=== PATIENT | female | born 1950 | race Caucasian/White ===

== ENCOUNTER 2019-01-20 14:00 | Observation (INO) | payer BC, MEDICARE ==
--- NOTE | 2019-01-20 15:04 | ED ---
General Adult HPI - General Chief complaint: Recheck/Abnormal Lab/Rx Stated complaint: Near-syncope Time Seen by Provider: 01/20/19 14:01 Source: patient, family, EMS, RN notes reviewed Mode of arrival: EMS Limitations: no limitations - History of Present Illness Initial comments: Patient is a pleasant 68-year-old female presenting to the emergency department following a near syncopal episode. Patient was going home and walked up the steps. Patient felt very lightheaded. Patient was concerned she could pass out. Symptoms did improve. Patient does complain of mild to moderate headache. Headache is left temporal. Headache is not severe. Headache was not sudden onset. No chest pain. No dyspnea. No history of similar symptoms previously. Patient does not recall the episode between the event and walking to get into the car. - Related Data Home Medications Medication Instructions Recorded Confirmed Simvastatin [Zocor] 40 mg PO DAILY 02/17/15 01/20/19 Acetaminophen with Codeine 1 tab PO QID PRN 01/20/19 01/20/19 [Tylenol with Codeine #4 Tablet] Albuterol Sulfate [Ventolin HFA] 2 puff INHALATION RT-Q4H PRN 01/20/19 01/20/19 Alendronate Sodium [Fosamax] 70 mg PO SA 01/20/19 01/20/19 Carvedilol [Coreg] 6.25 mg PO AC-BID 01/20/19 01/20/19 Cholecalciferol (Vitamin D3) 2,000 unit PO DAILY 01/20/19 01/20/19 [Vitamin D3] FLUoxetine HCL [PROzac] 40 mg PO DAILY 01/20/19 01/20/19 Famotidine 40 mg PO DAILY 01/20/19 01/20/19 Levothyroxine Sodium [Synthroid] 150 mcg PO DAILY 01/20/19 01/20/19 Lisinopril 40 mg PO DAILY 01/20/19 01/20/19 Tiotropium [place] [Spiriva 2 puff INHALATION RT-DAILY 01/20/19 01/20/19 Respimat] busPIRone HCl [Buspar] 10 mg PO DAILY 01/20/19 01/20/19 hydrALAZINE HCL 10 mg PO TID 01/20/19 01/20/19 Allergies Allergy/AdvReac Type Severity Reaction Status Date / Time Penicillins Allergy Anaphylaxis Verified 01/20/19 15:50 Sulfa (Sulfonamide Allergy Rash/Hives Verified 01/20/19 15:50 Antibiotics) Review of Systems ROS Statement: Those systems with pertinent positive or pertinent negative responses have been documented in the HPI. ROS Other: All systems not noted in ROS Statement are negative. Constitutional: Denies: fever Eyes: Denies: eye pain ENT: Denies: ear pain Respiratory: Denies: cough, dyspnea Cardiovascular: Denies: chest pain Endocrine: Denies: fatigue Gastrointestinal: Denies: abdominal pain Genitourinary: Denies: dysuria Musculoskeletal: Denies: back pain Skin: Denies: rash Neurological: Reports: headache. Denies: weakness, numbness, paresthesias, confusion Past Medical History Past Medical History: Fibromyalgia, Hypertension, Osteoarthritis (OA) Additional Past Medical History / Comment(s): kidney disease stage 4, morbid obesity History of Any Multi-Drug Resistant Organisms: None Reported Past Surgical History: Cholecystectomy, Orthopedic Surgery Additional Past Surgical History / Comment(s): d & c Past Psychological History: Anxiety, Depression Smoking Status: Former smoker Past Alcohol Use History: Occasional Past Drug Use History: None Reported General Exam Limitations: no limitations General appearance: alert, in no apparent distress Head exam: Present: atraumatic Eye exam: Present: normal appearance, PERRL, EOMI Expanded Posterior chamber: Normal Inspection: Bilateral ENT exam: Present: normal oropharynx Neck exam: Present: normal inspection. Absent: tenderness, meningismus Respiratory exam: Present: normal lung sounds bilaterally Cardiovascular Exam: Present: regular rate, normal rhythm GI/Abdominal exam: Present: soft. Absent: tenderness Extremities exam: Present: normal inspection. Absent: pedal edema, calf tenderness Neurological exam: Present: alert, oriented X3, CN II-XII intact. Absent: motor sensory deficit Expanded Neurological exam: Present: protecting the airway Patient oriented to: Present: person, place, time Speech: Present: fluid speech Cranial nerves: Facial Sensation: Normal Sensory exam: Upper Extremity Light Touch: Normal, Lower Extremity Light Touch: Normal Motor strength exam: RUE: 5, LUE: 5, RLE: 5, LLE: 5 Eye Response: (4) open spontaneously Motor Response: (6) obeys commands Verbal Response: (5) oriented Psychiatric exam: Present: normal affect, normal mood Skin exam: Present: normal color Course Vital Signs 11/24/19 14:07 Temperature 98.2 F Pulse Rate 67 Respiratory 18 Rate Blood Pressure 159/79 O2 Sat by Pulse 100 Oximetry EKG Findings - EKG Comments: EKG Findings:: Normal sinus rhythm 67. SC 160. QRS 92. QT 422. QTC 445. Normal axis. Normal QRS. No acute ST change. Medical Decision Making - Medical Decision Making Patient reevaluated and resting comfortably in bed. Patient family updated on results and plan. Case was discussed in detail with Dr. Lai, who will admit for hospital call. He does request orthostatics and the fluid bolus. Patient states vision is improving. - Lab Data Result diagrams: 01/20/19 14:33 01/20/19 14:33 Lab Results 01/20/19 01/20/19 01/20/19 Range/Units 14:33 14:33 14:33 WBC 17.8 H (3.8-10.6) k/uL RBC 4.41 (3.80-5.40) m/uL Hgb 13.5 (11.4-16.0) gm/dL Hct 41.2 (34.0-46.0) % MCV 93.6 (80.0-100.0) fL MCH 30.6 (25.0-35.0) pg MCHC 32.7 (31.0-37.0) g/dL RDW 12.8 (11.5-15.5) % Plt Count 273 (150-450) k/uL Neutrophils % 72 % Lymphocytes % 16 % Monocytes % 9 % Eosinophils % 1 % Basophils % 1 % Neutrophils # 12.8 H (1.3-7.7) k/uL Lymphocytes # 2.9 (1.0-4.8) k/uL Monocytes # 1.6 H (0-1.0) k/uL Eosinophils # 0.2 (0-0.7) k/uL Basophils # 0.2 (0-0.2) k/uL PT 10.3 (9.0-12.0) sec INR 1.0 (<1.2) APTT 21.8 L (22.0-30.0) sec Sodium 140 (137-145) mmol/L Potassium 3.8 (3.5-5.1) mmol/L Chloride 107 (98-107) mmol/L Carbon Dioxide 23 (22-30) mmol/L Anion Gap 10 mmol/L BUN 48 H (7-17) mg/dL Creatinine 1.52 H (0.52-1.04) mg/dL Est GFR (CKD-EPI)AfAm 40 (>60 ml/min/1.73 sqM) Est GFR (CKD-EPI)NonAf 35 (>60 ml/min/1.73 sqM) Glucose 94 (74-99) mg/dL Calcium 9.2 (8.4-10.2) mg/dL Total Bilirubin 0.4 (0.2-1.3) mg/dL AST 23 (14-36) U/L ALT 17 (9-52) U/L Alkaline Phosphatase 66 (38-126) U/L Troponin I (0.000-0.034) ng/mL Total Protein 7.3 (6.3-8.2) g/dL Albumin 3.9 (3.5-5.0) g/dL 01/20/19 Range/Units 14:33 WBC (3.8-10.6) k/uL RBC (3.80-5.40) m/uL Hgb (11.4-16.0) gm/dL Hct (34.0-46.0) % MCV (80.0-100.0) fL MCH (25.0-35.0) pg MCHC (31.0-37.0) g/dL RDW (11.5-15.5) % Plt Count (150-450) k/uL Neutrophils % % Lymphocytes % % Monocytes % % Eosinophils % % Basophils % % Neutrophils # (1.3-7.7) k/uL Lymphocytes # (1.0-4.8) k/uL Monocytes # (0-1.0) k/uL Eosinophils # (0-0.7) k/uL Basophils # (0-0.2) k/uL PT (9.0-12.0) sec INR (<1.2) APTT (22.0-30.0) sec Sodium (137-145) mmol/L Potassium (3.5-5.1) mmol/L Chloride (98-107) mmol/L Carbon Dioxide (22-30) mmol/L Anion Gap mmol/L BUN (7-17) mg/dL Creatinine (0.52-1.04) mg/dL Est GFR (CKD-EPI)AfAm (>60 ml/min/1.73 sqM) Est GFR (CKD-EPI)NonAf (>60 ml/min/1.73 sqM) Glucose (74-99) mg/dL Calcium (8.4-10.2) mg/dL Total Bilirubin (0.2-1.3) mg/dL AST (14-36) U/L ALT (9-52) U/L Alkaline Phosphatase (38-126) U/L Troponin I <0.012 (0.000-0.034) ng/mL Total Protein (6.3-8.2) g/dL Albumin (3.5-5.0) g/dL - Radiology Data Radiology results: report reviewed (Computed tomography scan of the brain shows nonspecific white matter demineralization that could be chronic small vessel change.), image reviewed (Chest x-ray shows no acute process) Disposition Clinical Impression: Near syncope Disposition: ADMITTED IP TO THIS HOSP Is patient prescribed a controlled substance at d/c from ED?: No Referrals: Radha Hurtado MD [Primary Care Provider] - 1-2 days Decision Time: 16:33
[2019-01-20 15:24] LABS: Basophils # (A) 0.2 k/uL (0-0.2); Basophils % (A) 1 %; Eosinophils # (A) 0.2 k/uL (0-0.7); Eosinophils % (A) 1 %; HCT 41.2 % (34.0-46.0); HGB 13.5 gm/dL (11.4-16.0); Lymphocytes # (A) 2.9 k/uL (1.0-4.8); Lymphocytes % (A) 16 %; MCH 30.6 pg (25.0-35.0); MCHC 32.7 g/dL (31.0-37.0); MCV 93.6 fL (80.0-100.0); Mean Platelet Volume 6.2; Monocytes # (A) 1.6 k/uL (0-1.0); Monocytes % (A) 9 %; Neutrophils # (A) 12.8 k/uL (1.3-7.7); Neutrophils % (A) 72 %; Platelet Count 273 k/uL (150-450); RBC 4.41 m/uL (3.80-5.40); RDW 12.8 % (11.5-15.5); WBC 17.8 k/uL (3.8-10.6)
--- NOTE | 2019-01-20 15:28 | XR ---
EXAMINATION TYPE: XR chest 2V DATE OF EXAM: 01/20/2019 COMPARISON: Prior chest 02/17/2015 HISTORY: Syncope, hypertension and headache TECHNIQUE: Frontal and lateral views of the chest are obtained. FINDINGS: There are overlying cardiac leads. There is no focal air space opacity, pleural effusion, o r pneumothorax seen. The cardiac silhouette size is stable, borderline enlarged. Arthropathy noted in the right shoulder is stable. The osseous structures are intact. IMPRESSION: No acute cardiopulmonary process.
[2019-01-20 15:32] LABS: Albumin 3.9 g/dL (3.5-5.0); Calcium 9.2 mg/dL (8.4-10.2); Potassium 3.8 mmol/L (3.5-5.1); Total Bilirubin 0.4 mg/dL (0.2-1.3); Total Protein 7.3 g/dL (6.3-8.2)
--- NOTE | 2019-01-20 15:32 | CT ---
EXAMINATION TYPE: CT brain wo con DATE OF EXAM: 01/20/2019 COMPARISON: None HISTORY: Dizziness and some confusion. CT DLP: 1080.4 mGycm Automated exposure control for dose reduction was used. Helical acquisition through the brain FINDINGS: Brain density is remarkable for some periventricular low-attenuation. There is no hemorrhage or hydro cephalus. Calvarium is intact. Orbits show symmetric appearance. Corpus callosum, pituitary, cervical medullary junction, cerebellopontine angles are within normal limits. There are cerebral vascular ca lcifications present. Paranasal sinuses and mastoid air cells are well aerated. IMPRESSION: NONSPECIFIC WHITE MATTER DEMYELINATION MAY BE RELATED TO CHRONIC SMALL VESSEL ISCHEMIC CHANGE. ALTERN ATE IMAGING COULD BE PERFORMED FOR ADDITIONAL EVALUATION INDICATED.
[2019-01-20 15:38] LABS: Prothrombin Time 10.3 sec (9.0-12.0)
[2019-01-20 15:41] LABS: Partial Thromboplastin Time 21.8 sec (22.0-30.0)
[2019-01-20] MEDS ORDERED: SODIUM CHLORIDE 0.9% 1,000 ML IV STA (15:59)
[2019-01-20] MEDS ORDERED: SODIUM CHLORIDE 0.9% 500 ML 500 ML IV STA (16:25)
[2019-01-20] MEDS ORDERED: NALOXONE 0.4 MG/ML 1 ML VIAL IV PRN (16:33)
[2019-01-20] MEDS: PANTOPRAZOLE 40 MG/10 ML VIAL IV SCH (16:51)
[2019-01-20 17:29] LABS: Appearance,Urine Clear (Clear); Bilirubin,Urine Negative (Negative); Blood,Urine Negative (Negative); Color,Urine Yellow; Glucose,Urine (UA) Negative (Negative); Ketones,Urine Negative (Negative); Leukocyte Esterase,Urine Negative (Negative); Nitrite,Urine Negative (Negative); PH, Urine 5.5 (5.0-8.0); Protein,Urine Negative (Negative); Specific Gravity,Urine 1.018 (1.001-1.035); Urobilinogen,Urine <2.0 mg/dL (<2.0)
[2019-01-20] MEDS ORDERED: Acetaminophen-Codeine 300-30mg TAB PO PRN (18:14)
[2019-01-20] MEDS ORDERED: ACETAMINOPHEN TAB 325 MG TAB PO PRN (18:19)
[2019-01-20] MEDS ORDERED: IPRATROPIUM-ALBUTEROL 3 ML NEB INHALATION PRN (18:19)
--- NOTE | 2019-01-20 18:25 | P.HPIM ---
History of Present Illness H&P Date: 01/20/19 Chief Complaint: Dizziness 68-year-old female with PMH of asthma, fibromyalgia, anxiety and depression, thyroid nodule status post thyroidectomy, hypertension, chronic kidney disease presents the ED for dizziness. Patient states that she was in the car driving for 1-1/2 hours prior to presentation. She stepped out of her car and started walking into the house when she started feeling lightheaded. She was able to ambulate 3 stairs when she started experiencing blackout vision. She denies any prodrome of sweating, nausea or palpitations. Her son was able to attend to her and bring her to the ED. She denies any shaking of her extremities, tongue biting or bladder or bowel incontinence. She denies any postictal confusion. Patient complains of black spots in her left vision currently along with left temporal headache. She denies any lower extremity swelling, nausea or vomiting, fever or chills, cough, chest pain, shortness of breath, changes in urination or bowel habits. No changes in appetite or weight. She denies any slurred speech or difficulty swallowing. She denies any numbness, weakness/tingling of the extremities. Of note, patient reports seeing her PCP recently for sinusitis where she received some prednisone along with a Z-David. She denies any smoking, alcohol or illicit drug use. She denies any history of CVA or [place]. In the ED, her vital signs were stable. CBC showed leukocytosis of 17.8. Coagulation panel was negative. CMP showed BUN 48, creatinine 1.52. Troponin was negative. Urinalysis was negative. Chest x-ray was negative. CT brain showed white matter demyelination, concerns for chronic ischemic vessel disease. Patient is admitted for presyncope, rule out CVA, neurology on consult. Review of Systems Pertinent positives and negatives as discussed in HPI, a complete review of systems was performed and all other systems are negative. Past Medical History Past Medical History: Fibromyalgia, Hypertension, Osteoarthritis (OA) Additional Past Medical History / Comment(s): kidney disease stage 4, morbid obesity History of Any Multi-Drug Resistant Organisms: None Reported Past Surgical History: Cholecystectomy, Orthopedic Surgery Additional Past Surgical History / Comment(s): d & c Past Psychological History: Anxiety, Depression Smoking Status: Former smoker Past Alcohol Use History: Occasional Past Drug Use History: None Reported Medications and Allergies Home Medications Medication Instructions Recorded Confirmed Type Simvastatin [Zocor] 40 mg PO DAILY 02/17/15 01/20/19 History Acetaminophen with Codeine 1 tab PO QID PRN 01/20/19 01/20/19 History [Tylenol with Codeine #4 Tablet] Albuterol Sulfate [Ventolin HFA] 2 puff INHALATION RT-Q4H PRN 01/20/19 01/20/19 History Alendronate Sodium [Fosamax] 70 mg PO SA 01/20/19 01/20/19 History Carvedilol [Coreg] 6.25 mg PO AC-BID 01/20/19 01/20/19 History Cholecalciferol (Vitamin D3) 2,000 unit PO DAILY 01/20/19 01/20/19 History [Vitamin D3] FLUoxetine HCL [PROzac] 40 mg PO DAILY 01/20/19 01/20/19 History Famotidine 40 mg PO DAILY 01/20/19 01/20/19 History Levothyroxine Sodium [Synthroid] 150 mcg PO DAILY 01/20/19 01/20/19 History Lisinopril 40 mg PO DAILY 01/20/19 01/20/19 History Tiotropium [place] [Spiriva 2 puff INHALATION RT-DAILY 01/20/19 01/20/19 History Respimat] busPIRone HCl [Buspar] 10 mg PO DAILY 01/20/19 01/20/19 History hydrALAZINE HCL 10 mg PO TID 01/20/19 01/20/19 History Allergies Allergy/AdvReac Type Severity Reaction Status Date / Time Penicillins Allergy Anaphylaxis Verified 01/20/19 15:50 Sulfa (Sulfonamide Allergy Rash/Hives Verified 01/20/19 15:50 Antibiotics) Physical Exam Vitals: Vital Signs Temp Pulse Pulse Pulse Pulse Resp BP 01/20/19 17:00 75 66 69 18 01/20/19 14:07 98.2 F 67 18 159/79 BP BP BP Pulse Ox 01/20/19 17:00 157/83 166/89 152/72 01/20/19 14:07 100 Intake and Output 01/20/19 01/20/19 01/20/19 06:59 14:59 22:59 Other: Weight 129.274 kg General: [non toxic], [obese], [appears at stated age] Derm: [warm], [dry] Head: [atraumatic], [normocephalic], [symmetric] Eyes: [EOMI], [no lid lag], [anicteric sclera] Mouth: [no lip lesion], [mucus membranes moist] Cardiovascular: [S1S2 reg], [irregular with systolic murmur], [positive DP pulse bilateral], Lungs: [CTA bilateral], [no rhonchi, no rales] , [no accessory muscle use] Abdominal: [soft], [ nontender to palpation], [no guarding], [no appreciable organomegaly] Ext: [no gross muscle atrophy], [no edema], [no contractures] Neuro: [ CN II-XI grossly intact], [no focal neuro deficits] Psych: [Alert], [oriented], [appropriate affect] Results CBC & Chem 7: 01/20/19 14:33 01/20/19 14:33 Labs: Abnormal Lab Results - Last 24 Hours (Table) 01/20/19 01/20/19 01/20/19 Range/Units 14:33 14:33 14:33 WBC 17.8 H (3.8-10.6) k/uL Neutrophils # 12.8 H (1.3-7.7) k/uL Monocytes # 1.6 H (0-1.0) k/uL APTT 21.8 L (22.0-30.0) sec BUN 48 H (7-17) mg/dL Creatinine 1.52 H (0.52-1.04) mg/dL Assessment and Plan Assessment: Dizziness with visual changes, concerns for CVA Leukocytosis Acute kidney injury on chronic kidney disease Chronic conditions: Asthma not in acute exacerbation Fibromyalgia Depression and anxiety Thyroid nodule status post thyroidectomy Hypertension Her orthostats are negative. Troponin is less than 0.012 with EKG showing normal sinus rhythm and sinus arrhythmia. Brain CT shows nonspecific white matter demyelination may be related to chronic small vessel ischemic changes. There are some concerns for CVA given her visual changes. Plans: Start normal saline at 130 mL/h and recheck orthostats tomorrow morning. Telemetry monitoring. Follow echocardiogram. Follow d-dimer, low concerns for PE. Trend troponin/EKG to rule out ACS. Will initiate stroke workup, follow carotid duplex/A1c/lipid panel/MRI brain. We will consult neurology. We will consult PT, OT and ST. Leukocytosis of 17.8. Urinalysis negative. Chest x-ray negative for pneumonia. Patient does report recent history of steroid use for sinusitis. Likely due to steroid use. Plans: We'll continue to monitor. Repeat CBC tomorrow morning. Creatinine 1.52. Unknown baseline. Patient known CKD. Plans: Hydration as above. Repeat BMP tomorrow morning. We will restart home medications for her depression and anxiety. Resume Coreg, hydralazine for hypertension while holding lisinopril due to CHARO. Restart Synthroid for hypothyroidism. DuoNeb as needed for shortness of breath and wheezing for asthma. DVT prophylaxis: [SCD] Discussed with: [Patient] Anticipated discharge: [1-2 days] Anticipated discharge place: [Home] A total of [45] minutes was spent on the care of this complex patient more than 50% of the time was spent in counseling and care coordination. Patient names her son Severino decision maker indicates that she can't make decisions for herself. She reiterates wanting to remain full code at this time.
[2019-01-20] MEDS ORDERED: ASPIRIN 81 MG PO STA (21:12)
[2019-01-20] MEDS ORDERED: HEPARIN SODIUM,PORCINE 5,000 UNIT/ML 1 ML VIAL IV PRN (21:13)
[2019-01-20] MEDS ORDERED: HEPARIN SODIUM,PORCINE 5,000 UNIT/ML 1 ML VIAL IV ONE (21:13)
[2019-01-20] MEDS ORDERED: HEPARIN SOD,PORK IN 0.45% NACL 25,000 UNIT in 0.45% NACL 1 250ML.BAG IV SCH (21:15)
[2019-01-20 21:44] LABS: Basophils # (A) 0.1 k/uL (0-0.2); Basophils % (A) 1 %; Eosinophils # (A) 0.2 k/uL (0-0.7); Eosinophils % (A) 2 %; HCT 34.8 % (34.0-46.0); HGB 10.9 gm/dL (11.4-16.0); Lymphocytes % (A) 24 %; MCH 29.6 pg (25.0-35.0); MCHC 31.2 g/dL (31.0-37.0); MCV 94.8 fL (80.0-100.0); Mean Platelet Volume 6.3; Monocytes # (A) 1.1 k/uL (0-1.0); Monocytes % (A) 9 %; Neutrophils # (A) 7.6 k/uL (1.3-7.7); Neutrophils % (A) 62 %; Platelet Count 228 k/uL (150-450); RBC 3.67 m/uL (3.80-5.40); WBC 12.3 k/uL (3.8-10.6)
[2019-01-20 21:52] LABS: Partial Thromboplastin Time 22.8 sec (22.0-30.0); Prothrombin Time 10.8 sec (9.0-12.0)
[2019-01-20] MEDS: CARVEDILOL 6.25 MG TAB PO SCH (21:55)
[2019-01-20] MEDS: hydrALAZINE HCL 10 MG TAB PO SCH (21:55)
[2019-01-21] MEDS ORDERED: HEPARIN SODIUM,PORCINE 5,000 UNIT/ML 1 ML VIAL SQ SCH
[2019-01-21 02:56] LABS: Basophils # (A) 0.3 k/uL (0-0.2); Basophils % (A) 3 %; Eosinophils # (A) 0.3 k/uL (0-0.7); Eosinophils % (A) 3 %; HCT 34.1 % (34.0-46.0); Lymphocytes # (A) 2.9 k/uL (1.0-4.8); Lymphocytes % (A) 28 %; MCH 30.5 pg (25.0-35.0); MCHC 32.3 g/dL (31.0-37.0); MCV 94.4 fL (80.0-100.0); Mean Platelet Volume 6.3; Monocytes # (A) 0.8 k/uL (0-1.0); Monocytes % (A) 8 %; Neutrophils # (A) 6.2 k/uL (1.3-7.7); Neutrophils % (A) 59 %; Platelet Count 218 k/uL (150-450); RBC 3.61 m/uL (3.80-5.40); WBC 10.5 k/uL (3.8-10.6)
[2019-01-21 03:33] LABS: Cholesterol 133 mg/dL (<200); HDL Cholesterol 36 mg/dL (40-60); LDL Cholesterol,Calculated 82 mg/dL (0-99); Triglycerides 73 mg/dL (<150)
[2019-01-21] MEDS: LEVOTHYROXINE 75 MCG TAB PO SCH (06:38)
[2019-01-21] MEDS: CARVEDILOL 6.25 MG TAB PO SCH ×2 (06:38→16:52)
[2019-01-21 07:25] LABS: Calcium 8.3 mg/dL (8.4-10.2); Potassium 4.5 mmol/L (3.5-5.1)
[2019-01-21] MEDS ORDERED: CARVEDILOL 6.25 MG TAB PO SCH (07:30)
--- NOTE | 2019-01-21 08:06 | P.CRDCN ---
History of Present Illness Consult date: 01/21/19 Requesting physician: Jesse Lai Consult reason: sycope Chief complaint: Syncope History of present illness: This is a pleasant 68-year-old female with history of hypertension, hyperlipidemia, hypothyroidism, her father had a myocardial infarction at the age of 65 and underwent coronary bypass grafting surgery, she is nondiabetic, nonsmoker and rarely drinks alcohol. She presented to the hospital following a near syncopal episode. According to the patient, she was walking into her son's house, noticed several black spots, she weaned herself over against the arm of the chair, she states that she did not pass out but felt as though she may. She was assisted out to the ambulance when it was called, she does not recall any of this other than the fact that she was having IV started in the EMS. Prior to that she has no recollection of what happened. She denies any palpitations, no chest discomfort, no shortness of breath. 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 Her chest x-ray on presentation here did not reveal any acute cardiopulmonary process. CAT scan of the brain was performed which showed nonspecific white matter demyelination which may be related to chronic small vessel ischemia. Her EKG on presentation here showed a normal sinus rhythm with no acute changes noted. Blood pressure 136/60 with a heart rate in the 50s, temperature 96.4, 137/60 blood pressure. Orthostatics were obtained which came back to be negative. Her white blood cell count on presentation here was 17.8, it is 10.5 this morning. Hemoglobin on admission 13.5, 11 this morning. Sodium 140, potassium 4.5, BUN 47, creatinine 1.5. Initial troponin 0.012, subsequent troponin 0.23, 2.4. Cholesterol 133, LDL 82, HDL 36, triglycerides 73. At the time of my examination this morning, patient feels well, no complaints. Past Medical History Past Medical History: Fibromyalgia, Hypertension, Osteoarthritis (OA) Additional Past Medical History / Comment(s): kidney disease stage 4, morbid obesity History of Any Multi-Drug Resistant Organisms: None Reported Past Surgical History: Cholecystectomy, Orthopedic Surgery Additional Past Surgical History / Comment(s): d & c, retracted rotator cuff (not able to repair) Smoking Status: Former smoker - Past Family History Mother Family Medical History: CVA/TIA Father Family Medical History: Myocardial Infarction (VT) Medications and Allergies Home Medications Medication Instructions Recorded Confirmed Type Simvastatin [Zocor] 40 mg PO DAILY 02/17/15 01/20/19 History Acetaminophen with Codeine 1 tab PO QID PRN 01/20/19 01/20/19 History [Tylenol with Codeine #4 Tablet] Albuterol Sulfate [Ventolin HFA] 2 puff INHALATION RT-Q4H PRN 01/20/19 01/20/19 History Alendronate Sodium [Fosamax] 70 mg PO SA 01/20/19 01/20/19 History Carvedilol [Coreg] 6.25 mg PO AC-BID 01/20/19 01/20/19 History Cholecalciferol (Vitamin D3) 2,000 unit PO DAILY 01/20/19 01/20/19 History [Vitamin D3] FLUoxetine HCL [PROzac] 40 mg PO DAILY 01/20/19 01/20/19 History Famotidine 40 mg PO DAILY 01/20/19 01/20/19 History Levothyroxine Sodium [Synthroid] 150 mcg PO DAILY 01/20/19 01/20/19 History Lisinopril 40 mg PO DAILY 01/20/19 01/20/19 History Tiotropium [place] [Spiriva 2 puff INHALATION RT-DAILY 01/20/19 01/20/19 History Respimat] busPIRone HCl [Buspar] 10 mg PO DAILY 01/20/19 01/20/19 History hydrALAZINE HCL 10 mg PO TID 01/20/19 01/20/19 History Allergies Allergy/AdvReac Type Severity Reaction Status Date / Time Penicillins Allergy Anaphylaxis Verified 01/20/19 15:50 Sulfa (Sulfonamide Allergy Rash/Hives Verified 01/20/19 15:50 Antibiotics) Physical Exam Vitals: Vital Signs Temp Pulse Pulse Pulse Pulse Pulse Resp 01/21/19 04:19 96.4 F L 58 L 16 01/20/19 21:51 97.9 F 66 69 69 16 01/20/19 18:19 98.4 F 71 16 01/20/19 17:00 75 66 69 18 01/20/19 14:07 98.2 F 67 18 BP BP BP BP Pulse Ox 11/25/19 04:19 137/63 96 01/20/19 21:51 161/71 145/81 150/74 98 01/20/19 18:19 150/78 98 01/20/19 17:00 157/83 166/89 152/72 01/20/19 14:07 159/79 100 Intake and Output 01/20/19 01/21/19 01/21/19 22:59 06:59 14:59 Intake Total 300 53.463 Balance 300 53.463 Intake: Intake, IV Titration 300 53.463 Amount Heparin Sod,Pork in 0.45% 53.463 NaCl 25,000 unit In 0.45 % NaCl 1 250ml.bag @ 7.73 UNITS/KG/HR 9.993 mls/hr IV .Q24H BRENNEN Rx#: [id number] Sodium Chloride 0.9% 1, 300 000 ml @ 130 mls/hr IV . Q7H42M STA Rx#:[id number] Other: Voiding Method Toilet # Voids 1 PHYSICAL EXAMINATION: GENERAL: 68-year-old female in no acute distress at the time of my examination HEENT: Head is atraumatic, normocephalic. Pupils equal, round. Sclera anicteric. Conjunctiva are clear. Mucous membranes of the mouth are moist. Neck is supple. There is no elevated jugular venous pressure. No carotid bruit is heard. HEART EXAMINATION: Heart S1 and S2 with systolic murmur is heard CHEST EXAMINATION: Lungs are clear to auscultation and precussion. No chest wall tenderness is noted on palpation or with deep breathing. ABDOMEN: Soft, obese, nontender. Bowel sounds are heard. No organomegaly noted. EXTREMITIES: 2+ peripheral pulses with trace evidence of peripheral edema and no calf tenderness noted. NEUROLOGIC patient is awake, alert and oriented 3 . . Results 01/21/19 02:44 01/21/19 02:44 Cardiac Enzymes 01/20/19 01/20/19 01/20/19 Range/Units 14:33 14:33 20:07 AST 23 (14-36) U/L Troponin I <0.012 0.232 H* (0.000-0.034) ng/mL 01/21/19 Range/Units 02:44 AST (14-36) U/L Troponin I 2.450 H* (0.000-0.034) ng/mL Coagulation 01/20/19 01/20/19 01/21/19 Range/Units 14:33 21:28 02:44 PT 10.3 10.8 (9.0-12.0) sec APTT 21.8 L 22.8 65.4 H (22.0-30.0) sec Lipids 01/21/19 Range/Units 02:44 Triglycerides 73 (<150) mg/dL Cholesterol 133 (<200) mg/dL HDL Cholesterol 36 L (40-60) mg/dL CBC 01/20/19 01/20/19 01/21/19 Range/Units 14:33 21:28 02:44 WBC 17.8 H 12.3 H 10.5 (3.8-10.6) k/uL RBC 4.41 3.67 L 3.61 L (3.80-5.40) m/uL Hgb 13.5 10.9 L 11.0 L (11.4-16.0) gm/dL Hct 41.2 34.8 34.1 (34.0-46.0) % Plt Count 273 228 218 (150-450) k/uL Comprehensive Metabolic Panel 01/20/19 01/21/19 Range/Units 14:33 02:44 Sodium 140 140 (137-145) mmol/L Potassium 3.8 4.5 (3.5-5.1) mmol/L Chloride 107 111 H (98-107) mmol/L Carbon Dioxide 23 25 (22-30) mmol/L BUN 48 H 47 H (7-17) mg/dL Creatinine 1.52 H 1.53 H (0.52-1.04) mg/dL Glucose 94 85 (74-99) mg/dL Calcium 9.2 8.3 L (8.4-10.2) mg/dL AST 23 (14-36) U/L ALT 17 (9-52) U/L Alkaline Phosphatase 66 (38-126) U/L Total Protein 7.3 (6.3-8.2) g/dL Albumin 3.9 (3.5-5.0) g/dL Current Medications Generic Name Dose Route Start Last Admin Trade Name Freq PRN Reason Stop Dose Admin Acetaminophen 650 mg 01/20/19 18:19 Tylenol Tab PO Q6HR PRN Mild Pain or Fever > 100.5 Acetaminophen/Codeine Phosphate 1 each 01/20/19 18:14 01/20/19 18:51 Tylenol #3 PO 1 each QID PRN Administration Pain Albuterol/Ipratropium 3 ml 01/20/19 18:19 Duoneb 0.5 Mg-3 Mg/3 Ml Soln INHALATION RT-Q2H PRN Shortness Of Breath Or Wheezing Atorvastatin Calcium 20 mg 01/21/19 09:00 Lipitor PO DAILY BRENNEN Buspirone HCl 10 mg 01/21/19 09:00 Buspar PO DAILY BRENNEN Carvedilol 6.25 mg 01/20/19 21:37 01/21/19 06:38 Coreg PO 6.25 mg AC-BID BRENNEN Administration Fluoxetine HCl 40 mg 01/21/19 09:00 Prozac PO DAILY BRENNEN Heparin Sodium (Porcine) 0 unit 01/20/19 21:13 Heparin IV PER PROTOCOL PRN Low PTT Protocol Hydralazine HCl 10 mg 01/20/19 22:00 01/20/19 21:55 Apresoline PO 10 mg TID BRENNEN Administration Heparin Sodium/Sodium Chloride 250 mls @ 9.993 mls/hr 01/20/19 21:15 01/21/19 03:12 25,000 unit/ Sodium Chloride IV 7.73 units/kg/hr .Q24H BRENNEN 9.993 mls/hr Titration Protocol 7.73 UNITS/KG/HR Levothyroxine Sodium 150 mcg 01/21/19 06:30 01/21/19 06:38 Synthroid PO 150 mcg DAILY@0630 BRENNEN Administration Naloxone HCl 0.2 mg 01/20/19 16:33 Narcan IV Q2M PRN Opioid Reversal Pantoprazole Sodium 40 mg 01/20/19 16:45 01/20/19 16:51 Protonix IV 40 mg DAILY BRENNEN Administration Intake and Output 01/20/19 01/21/19 01/21/19 22:59 06:59 14:59 Intake Total 300 53.463 Balance 300 53.463 Intake: Intake, IV Titration 300 53.463 Amount Heparin Sod,Pork in 0.45% 53.463 NaCl 25,000 unit In 0.45 % NaCl 1 250ml.bag @ 7.73 UNITS/KG/HR 9.993 mls/hr IV .Q24H [facility]ENN[facility] Rx#: [id number] Sodium Chloride 0.9% 1, 300 000 ml @ 130 mls/hr IV . Q7H42M STA Rx#:[id number] Other: Voiding Method Toilet # Voids 1 01/21/19 02:44 01/21/19 02:44 EKG Interpretations (text) EKG shows a normal sinus rhythm with no acute changes. Assessment and Plan Plan: Assessment and plan #1 symptoms of visual disturbance with near-syncope, brief unresponsive episode. Rule out cardiac causes. Orthostatics were obtained which came back to be negative. No arrhythmias so far have been noted on the monitor. #2 hypertension #3 hyperlipidemia #4 obesity #5 hypothyroidism, thyroidectomy one year ago #6 family history of premature coronary artery disease #7 renal insufficiency, patient states she has chronic renal insufficiency from use of Flexeril in the past, she has seen a pipe insulator helper multiple years ago. #8 elevated white blood cell count on admission, normal this morning #9 abnormal troponins, trend suggests possible acute coronary syndrome. EKG shows a normal sinus rhythm with no acute changes. Plan We will obtain an echocardiogram with Doppler study. We will also obtain a d- dimer rule out possibility of pulmonary embolism. Because of the abnormality in the patient's troponins, and in spite of the fact that she did not have any symptoms of chest discomfort shortness of breath or palpitations, she may require further evaluation to rule out underlying coronary artery disease. Fur ther recommendations to follow. We will put the patient on a baby aspirin in the meantime. Initiate a statin. Patient does take Zocor 40 at home. DNP note has been reviewed, I agree with a documented findings and plan of care. Patient was seen and examined.
[2019-01-21] MEDS ORDERED: ATORVASTATIN 80 MG TAB PO SCH (09:00)
[2019-01-21] MEDS ORDERED: ATORVASTATIN 20 MG TAB PO SCH (09:00)
--- NOTE | 2019-01-21 09:35 | P.PN ---
Subjective Progress Note Date: 01/21/19 Principal diagnosis: Dizziness Patient currently not in room. Objective - Vital Signs Vital signs: Vital Signs Temp 96.4 F L 01/21/19 04:19 Pulse 58 L 01/21/19 04:19 Resp 16 01/21/19 04:19 BP 137/63 01/21/19 04:19 Pulse Ox 96 01/21/19 04:19 Intake & Output 01/20/19 01/21/19 01/21/19 18:59 06:59 18:59 Intake Total 353.463 Balance 353.463 Weight 129.274 kg Intake: Intake, IV Titration 353.463 Amount Heparin Sod,Pork in 0.45% 53.463 NaCl 25,000 unit In 0.45 % NaCl 1 250ml.bag @ 7.73 UNITS/KG/HR 9.993 mls/hr IV .Q24H [facility]ENN[facility] Rx#: [id number] Sodium Chloride 0.9% 1, 300 000 ml @ 130 mls/hr IV . Q7H42M STA Rx#:[id number] Other: Voiding Method Toilet # Voids 1 - Exam Patient currently not in room. - Labs CBC & Chem 7: 01/21/19 02:44 01/21/19 02:44 Labs: Abnormal Lab Results - Last 24 Hours (Table) 01/20/19 01/20/19 01/20/19 Range/Units 14:33 14:33 14:33 WBC 17.8 H (3.8-10.6) k/uL RBC (3.80-5.40) m/uL Hgb (11.4-16.0) gm/dL Neutrophils # 12.8 H (1.3-7.7) k/uL Monocytes # 1.6 H (0-1.0) k/uL Basophils # (0-0.2) k/uL APTT 21.8 L (22.0-30.0) sec D-Dimer (<0.60) mg/L FEU Chloride (98-107) mmol/L BUN 48 H (7-17) mg/dL Creatinine 1.52 H (0.52-1.04) mg/dL Calcium (8.4-10.2) mg/dL Troponin I (0.000-0.034) ng/mL HDL Cholesterol (40-60) mg/dL 01/20/19 01/20/19 01/20/19 Range/Units 14:33 20:07 21:28 WBC 12.3 H (3.8-10.6) k/uL RBC 3.67 L (3.80-5.40) m/uL Hgb 10.9 L (11.4-16.0) gm/dL Neutrophils # (1.3-7.7) k/uL Monocytes # 1.1 H (0-1.0) k/uL Basophils # (0-0.2) k/uL APTT (22.0-30.0) sec D-Dimer 4.49 H (<0.60) mg/L FEU Chloride (98-107) mmol/L BUN (7-17) mg/dL Creatinine (0.52-1.04) mg/dL Calcium (8.4-10.2) mg/dL Troponin I 0.232 H* (0.000-0.034) ng/mL HDL Cholesterol (40-60) mg/dL 01/21/19 01/21/19 01/21/19 Range/Units 02:44 02:44 02:44 WBC (3.8-10.6) k/uL RBC (3.80-5.40) m/uL Hgb (11.4-16.0) gm/dL Neutrophils # (1.3-7.7) k/uL Monocytes # (0-1.0) k/uL Basophils # (0-0.2) k/uL APTT 65.4 H (22.0-30.0) sec D-Dimer (<0.60) mg/L FEU Chloride (98-107) mmol/L BUN (7-17) mg/dL Creatinine (0.52-1.04) mg/dL Calcium (8.4-10.2) mg/dL Troponin I 2.450 H* (0.000-0.034) ng/mL HDL Cholesterol 36 L (40-60) mg/dL 01/21/19 01/21/19 Range/Units 02:44 02:44 WBC (3.8-10.6) k/uL RBC 3.61 L (3.80-5.40) m/uL Hgb 11.0 L (11.4-16.0) gm/dL Neutrophils # (1.3-7.7) k/uL Monocytes # (0-1.0) k/uL Basophils # 0.3 H (0-0.2) k/uL APTT (22.0-30.0) sec D-Dimer (<0.60) mg/L FEU Chloride 111 H (98-107) mmol/L BUN 47 H (7-17) mg/dL Creatinine 1.53 H (0.52-1.04) mg/dL Calcium 8.3 L (8.4-10.2) mg/dL Troponin I (0.000-0.034) ng/mL HDL Cholesterol (40-60) mg/dL Assessment and Plan Assessment: Non-ST elevation AR Dizziness with visual changes, concerns for CVA Elevated d-dimer rule out PE Acute kidney injury on chronic kidney disease Chronic conditions: Asthma not in acute exacerbation Fibromyalgia Depression and anxiety Thyroid nodule status post thyroidectomy Hypertension Troponin less than 0.012, 0.232, 2.45 with EKG showing normal sinus rhythm with sinus arrhythmia, T-wave inversions. Plans: Started on heparin drip. Start aspirin 81 mg by mouth daily, Lipitor 80 mg by mouth daily. Continue beta joanna. Telemetry monitoring. Follow echocardiogram. Follow cardiology recommendations. Her orthostats are negative. Troponin is uptrending and there are concerns for ACS. Brain CT shows nonspecific white matter demyelination may be related to chronic small vessel ischemic changes, concerns for CVA given her visual changes. Elevated d-dimer with concerns for PE. Plans: Telemetry monitoring. Management as above for NSTEMI. Follow stroke workup, including carotid duplex/A1c/lipid panel/MRI brain, neurology consulted along with PT/OT/ST. D- dimer elevated, follow VQ scan to rule out PE, patient currently on heparin drip. Follow Cardiology and Neurology recommendations. D-dimer elevated at 4.49. Plans: Follow VQ scan. Creatinine 1.53. Unknown baseline. Patient known CKD. Plans: Hydration as above. Repeat BMP tomorrow morning. We will restart home medications for her depression and anxiety. Resume Coreg, hydralazine for hypertension while holding lisinopril due to CHARO. Restart Sy nthroid for hypothyroidism. DuoNeb as needed for shortness of breath and wheezing for asthma. [Patient admitted for presyncopal symptoms. Found to have elevated troponins, cardiology on board. Ruling out CVA and PE. She is pending clinical improvement. Likely DC in 2-3 days.]
--- NOTE | 2019-01-21 10:27 | NM ---
EXAMINATION TYPE: NM pul vent and perfuse DATE OF EXAM: 01/21/2019 COMPARISON: Prior chest x-ray 01/20/2019 HISTORY: Difficulty breathing, cough and wheezing TECHNIQUE: Utilizing inhalation of 30.2 mCi Tc 99m DTPA aerosol and intravenous injection of 5.2 mCi of Tc 99m MAA, ventilation and perfusion images are acquired post injection in multiple projections. FINDINGS: Normal radiotracer distribution is noted in the lungs. There is no evidence of mismatched defects. IMPRESSION: Low probability for pulmonary embolism
[2019-01-21] MEDS ORDERED: ALPRAZolam 0.25 MG TAB PO PRN (10:43)
[2019-01-21] MEDS ORDERED: ALPRAZolam 0.5 MG TAB PO PRN (10:43)
[2019-01-21] MEDS ORDERED: SODIUM CHLORIDE 0.9% 1,000 ML in EMPTY BAG 1 BAG IV ONE (10:43)
[2019-01-21] MEDS ORDERED: NITROGLYCERIN SL TABS 0.4 MG TAB SUBLINGUAL PRN (10:43)
[2019-01-21] MEDS ORDERED: ASPIRIN 325 MG TAB PO STA (10:43)
[2019-01-21] MEDS ORDERED: ATORVASTATIN 80 MG TAB PO STA (10:43)
--- NOTE | 2019-01-21 10:57 | ECHOF ---
Referral Reason:CVA workup MEASUREMENTS -------- HEIGHT: 157.5 cm WEIGHT: 129.3 kg BP: 137/63 RVIDd: 3.4 cm (< 3.3) IVSd: 1.3 cm (0.6 - 1.1) LVIDd: 4.5 cm (3.9 - 5.3) LVPWd: 1.3 cm (0.6 - 1.1) IVSs: 1.6 cm LVIDs: 3.2 cm LVPWs: 1.6 cm LA Diam: 4.4 cm (2.7 - 3.8) LAESV Index (A-L): 28.70 ml/m Ao Diam: 3.2 cm (2.0 - 3.7) AV Cusp: 1.7 cm (1.5 - 2.6) LA Diam: 3.9 cm (2.7 - 3.8) MV EXCURSION: 15.271 mm (> 18.000) MV EF SLOPE: 106 mm/s (70 - 150) EPSS: 0.4 cm MV E Ceasar: 0.72 m/s MV DecT: 160 ms MV A Ceasar: 0.70 m/s MV E/A Ratio: 1.04 RAP: 5.00 mmHg RVSP: 41.49 mmHg TAPSE: 25.77 mm FINDINGS -------- Sinus rhythm. This was a technically adequate study. The left ventricular size is normal. There is mild concentric left ventricular hypertrophy. Overa ll left ventricular systolic function is normal with, an EF between 55 - 60 %. The diastolic fillin g pattern is normal for the age of the patient 8.93. The right ventricle is normal in size. The left atrium is mildly dilated. LA is midly dilated 29-33ml/m2. The right atrial size is normal. There is mild aortic valve sclerosis. There is no evidence of aortic regurgitation. Mild mitral annular calcification present. Wsxi-hs-xuiuohic mitral regurgitation is present. Mild tricuspid regurgitation present. There is mild pulmonary hypertension. The right ventricular systolic pressure, as measured by Doppler, is 41.49mmHg. Trace/mild (physiologic) pulmonic regurgitation. The aortic root size is normal. There is no pericardial effusion. CONCLUSIONS -------- 1. Sinus rhythm. 2. This was a technically adequate study. 3. The left ventricular size is normal. 4. There is mild concentric left ventricular hypertrophy. 5. Overall left ventricular systolic function is normal with, an EF between 55 - 60 %. 6. The diastolic filling pattern is normal for the age of the patient 8.93 7. The right ventricle is normal in size. 8. The left atrium is mildly dilated. 9. LA is midly dilated 29-33ml/m2. 10. The right atrial size is normal. 11. There is mild aortic valve sclerosis. 12. Mild mitral annular calcification present. 13. Vaiq-lq-ycctcgmn mitral regurgitation is present. 14. Mild tricuspid regurgitation present. 15. There is mild pulmonary hypertension. 16. The right ventricular systolic pressure, as measured by Doppler, is 41.49mmHg. 17. Trace/mild (physiologic) pulmonic regurgitation. 18. The aortic root size is normal. 19. There is no pericardial effusion. LIGHTNING ROD ERECTOR: Ivette Padgett RDCS
[2019-01-21] MEDS: FLUoxetine HCL 20 MG CAP PO SCH (11:02)
[2019-01-21] MEDS: hydrALAZINE HCL 10 MG TAB PO SCH ×3 (11:02→19:53)
[2019-01-21] MEDS: busPIRone HCl 10 MG TAB PO SCH (11:02)
[2019-01-21] MEDS: PANTOPRAZOLE 40 MG/10 ML VIAL IV SCH (11:03)
[2019-01-21] MEDS ORDERED: LIDOCAINE 1% INJ 10MG/ML (20 ML MDV) ONE (11:25)
[2019-01-21] MEDS ORDERED: VERAPAMIL 2.5 MG/ML 2 ML AMP ONE (11:25)
[2019-01-21] MEDS ORDERED: fentaNYL (PF) 50 MCG/ML 2 ML AMP ONE (11:26)
[2019-01-21] MEDS ORDERED: LIDOCAINE 1% INJ 10MG/ML (20 ML MDV) SQ ONE (11:32)
[2019-01-21] MEDS ORDERED: fentaNYL (PF) 50 MCG/ML 2 ML AMP IV ONE (11:33)
[2019-01-21] MEDS ORDERED: IV FLUID CONTINUATION 400 ML IV ONE (11:33)
[2019-01-21] MEDS ORDERED: VERAPAMIL SYRINGE (5 MG/10 ML) INTRAARTER ONE (11:33)
[2019-01-21] MEDS ORDERED: HEPARIN SODIUM 1,000 UN/ML (10ML VL) IV ONE (11:41)
[2019-01-21] MEDS ORDERED: IOPAMIDOL-370 125ML BTL INJ ONE (11:41)
[2019-01-21] MEDS ORDERED: RX INFO: IV CONTRAST WAS GIVEN 1 EACH MISC MISCELLANE PRN (11:56)
[2019-01-21] MEDS ORDERED: SODIUM CHLORIDE 0.9% 1,000 ML IV SCH (12:00)
--- NOTE | 2019-01-21 12:20 | CC ---
CARDIAC CATHETERIZATION REPORT Mrs. Ayala is a 68-year-old female with known history of chronic kidney disease, who presented with a syncopal episode not associated with any other symptoms. She was found to have an elevation of her troponin and elevation of her D-dimer. She underwent a ventilation perfusion scan that had a low probability for pulmonary embolism, but because of her presentation and her troponin elevation, recommendation made regarding cardiac catheterization. The procedures, risks, and complications were discussed with the patient who is in full understanding and agreement. PROCEDURE: Patient was brought to recyclable materials collector in a fasting semi-sedated state after receiving fentanyl and Benadryl and achieving moderate conscious sedated state. Using Xylocaine anesthesia and Seldinger technique, a 6-Kinyarwanda sheath was introduced in the right radial artery. Selective right and left coronary angiography performed using 5-Kinyarwanda 3.5 bend right and left Tyron catheter. Multiple views of the coronary artery including hemiaxial views were obtained. Following that, 5-Kinyarwanda tight pigtail catheter was introduced in the left ventricle and pressures were calculated. Following that, catheter and sheaths were removed. Hemostasis was obtained with deployment of a TR band. There was no immediate complication. Patient is returned to her room in stable condition. Of note, patient received 5000 units of intravenous heparin as well as intra-arterial verapamil. FINDINGS: 1. LEFT MAIN: This is a large-sized vessel, bifurcating into left circumflex, left anterior descending artery. Left main coronary artery has no evidence of high- grade stenosis. 2. LEFT ANTERIOR DESCENDING ARTERY: This is a large-sized vessel, reaching toward the apex with a wraparound apex segment, giving rise to 2 diagonal branches, the first one is large in caliber. The left anterior descending artery after the takeoff of the first diagonal branch has a 20% to 30% plaque. The rest of the vessel has no high-grade stenosis. 3. LEFT CIRCUMFLEX: This is a small, nondominant vessel giving rise to 2 obtuse marginal branches. The left circumflex as well as branches have no evidence of obstructive coronary artery disease. 4. RIGHT CORONARY ARTERY: This is a large dominant vessel bifurcating distally into PDA posterolateral segment and branches. The right coronary artery in the mid segment has intimal plaque of 20%. The rest of the vessel has no high-grade stenosis. 5. LEFT VENTRICULOGRAM: Left ventriculogram is not performed. 6. HEMODYNAMICS: There was no gradient across the aortic valve. The left ventricular end-diastolic pressure was 12-16 mmHg. CONCLUSION: 1. Mild intimal disease involving the left anterior descending artery and the right coronary artery. 2. Right coronary dominance. RECOMMENDATION: I see no evidence to explain the elevation of the troponin or the syncopal episode. The left ventricular systolic function by echocardiography was normal. She may have had an episode of vasospastic disease, although there was no electrocardiographic changes to point to that. At this time, I will continue medical therapy. Those findings and recommendation were discussed with the patient who is in full understanding and agreement. Duration of procedure is 16 minutes. MMODL / IJN: [id number] /
[2019-01-21] MEDS: ASPIRIN 81 MG PO SCH (12:21)
[2019-01-21 13:04] LABS: Hemoglobin A1C 5.5 % (4.0-6.0)
[2019-01-21 13:16] LABS: Creatine Kinase MB 6.2 ng/mL (0.0-2.4)
[2019-01-21 13:27] LABS: Troponin I 3.08 ng/mL (0.000-0.034)
--- NOTE | 2019-01-21 15:54 | US ---
EXAMINATION TYPE: US carotid duplex BILAT DATE OF EXAM: 01/21/2019 COMPARISON: NONE CLINICAL HISTORY: CVA workup. Near syncopal episode EXAM MEASUREMENTS: RIGHT: Peak Systolic Velocity (PSV) cm/sec ----- Right CCA: 66.7 ----- Right ICA: 76.6 ----- Right ECA: 43.2 ICA/CCA ratio: 1.1 RIGHT: End Diastole cm/sec ----- Right CCA: 15.9 ----- Right ICA: 23.1 ----- Right ECA: 5.5 LEFT: Peak Systolic Velocity (PSV) cm/sec ----- Left CCA: 61.2 ----- Left ICA: 83.3 ----- Left ECA: 57.1 ICA/CCA ratio: 1.4 LEFT: End Diastole cm/sec ----- Left CCA: 14.9 ----- Left ICA: 22.8 ----- Left ECA: 0.0 VERTEBRALS (direction of flow): Right Vertebral: Antegrade Left Vertebral: Antegrade Rhythm: Arrhythmia Bilateral carotid system appears wnl and PSV is wnl bilaterally. IMPRESSION: 1. No suspicious stenosis based on ultrasound Doppler sonography velocities. Criteria for Assigning % of Stenosis / Diameter reduction (Estimation based on the indirect measurements of the internal carotid artery velocities (ICA PSV). 1. Normal (no stenosis)=ICA PSV < 125 cm/s: ratio < 2.0: ICA EDV<40 cm/s. 2. Less than 50% stenosis=ICA PSV < 125 cm/s: ratio < 2.0: ICA EDV<40 cm/s. 3. 50 to 69% stenosis=ICA PSV of 125 to 230 cm/s: ration 2.0 ? 4.0: ICA EDV 40-100 cm/s. 4. Greater than 70% stenosis to near occlusion= ICA PSV > 230 cm/s: ratio > 4.0: ICA EDV > 100 cm/s. 5. Near occlusion= ICA PSV velocities may be low or undetectable: variable ratio and ICA EDV. 6. Total occlusion=unable to detect flow.
--- NOTE | 2019-01-21 16:18 | P.CNNES ---
History of Present Illness Consult date: 01/21/19 Reason for Consult: dizziness, possible stroke Chief complaint: Near syncopal episode History of Present Illness: HISTORY OF PRESENT ILLNESS: Thank you for allowing me to evaluate Ms. Lupe Ayala. Ms. Ayala is a 68 year-old woman with PMhx of fibromyalgia, HTN, osteoarthritis, CKD Stage 4, hypothyroidism, Morbid obesity, anxiety, depression, who presented to [facility] for a near syncopal episode, consulting Neurology for concerns of stroke. Patient states that she was with her grandson Adi when she started having various black spots in the visual field, more on the L side than the R. She never closed one eye at a time to see if it would get better. Per granddaughter and grandson at bedside, patient was also complaining of chest pressure along with L arm pain and numbness. Patient's grandson, who is an EMT, decided that she needed to go to the hospital, and patient was told that she even buckled herself, but she doesn't remember the ride from her house, to the fire station (where patient got on an ambulance). She does remember the ride in the ambulance. Patient states her symptoms went away a couple of hours after she arrived in ED. Patient denies ever having jaziel lar symptoms in the past. Denies any abnormal movements, urinary/bowel incontinence, tongue biting. Patient denies any head trauma or recent car accidents. Patient was told recently by her mother that she had a seizure when she was 18 months old when she had pneumonia as a baby. She has not had any seizure episodes since. Denies any recent sickness, fever, nausea, vomiting, headache, double vision, weakness, numbness or tingling. PAST MEDICAL HISTORY: fibromyalgia, HTN, osteoarthritis, CKD Stage 4, hypothyroidism, Morbid obesity, anxiety, depression PAST SURGICAL HISTORY: Cholecystectomy, orthopedic surgery, D&C HOME MEDICATIONS: Simvastatin, Spiriva, Famotidine, Albuterol, Alendronate, Buspirone, Lisinopril, levothyroxine, carvedilol, Vitamin D, hydralazine, Fluoxetine ALLERGIES: Sulfa, Penicillins SOCIAL HISTORY: Former smoker. Occasional EtOH user REVIEW OF SYSTEMS: The 14 systems are reviewed and no additional points are identified compared to the review of systems documented history and physical PHYSICAL EXAMINATION: VITAL SIGNS: T 96.4 HR 58 RR 16 BP 137/63 O2 sat 96% on RA GEN.: morbidly obese, NAD, pleasant and cooperative HEENT: NCAT, sclera without icterus NECK: Supple, no carotid bruit SKIN AND EXTREMITIES: Warm to touch, no edema NEURO: MENTAL STATUS: Patient alert and oriented to self, place, time. Able to name the current president. Speech fluent, able to name and repeat, following all commands readily. No right and left disorientation, neglect. CRANIAL NERVES II THROUGH XII: II: Pupils are equal and reactive to light symmetrically. No afferent pupillary defect. Visual cain are intact. III, IV, : No ptosis. Extraocular movements full. No nystagmus. V: Facial sensation intact from V1-3. VII. No clear facial asymmetry. VIII: Hearing intact to finger rub bilaterally. IX, X: Symmetric palate elevation. XI: Shoulder shrug intact. XII: Tongue midline without fasciculation or atrophy. MOTOR: Normal bulk/tone. No pronator drift or tremor. Strength is 5/5 through out all 4 extremities. SENSORY: Intact to light touch in all 4 extremities. Romberg is negative. REFLEXES: 2+ throughout. Toes are downgoing. COORDINATION: Finger to nose intact. No dysmetria. GAIT: Narrow-based and stable. He also is DIAGNOSTIC TESTING: LABORATORY: WBC 10.5 hemoglobin 11.0 platelet 218 d-dimer 65.4 sodium 140 potassium 4.5 chloride 111 bicarb 25 BUN 47 creatinine 1.53 AST 23 ALT 17 alk phos 66 troponin <0.012-> 0.232-> 2.450 urinalysis negative Total cholesterol 133 LDL 82 HDL 36 triglycerides 73 IMAGING: CT head without contrast 01/20/2019: Nonspecific white matter demyelination may be related to chronic small vessel ischemic change. Carotid Doppler 01/21/19: No suspicious stenosis based on US Doppler sonography velocities. TTE 01/21/19: SR. LV, RA, RV sizes are normal. LA midly dilated. EF 55-60%. ASSESSMENT: 68 year-old woman with PMhx of fibromyalgia, HTN, osteoarthritis, CKD Stage 4, hypothyroidism, Morbid obesity, anxiety, depression, who presented to [facility] for a near syncopal episode, consulting Neurology for concerns of [place]. The episode involved L arm pain/numbness (which also involved chest pain), and visual deficits, which could be due to seizure or stroke. Patient with risk factors for stroke including smoking hx, HTN and morbid obesity. RECOMMENDATIONS: 1. MRI brain without contrast 2. Cardiac monitoring: so far, no obvious atrial arrhythmia but TTE showing mildly dilated left atrium. Patient will need long-term monitoring. 3. c/w ASA 81mg qday and atorvastatin 80mg qhs 4. Labs: A1C, TSH 5. Routine EEG 6. Will discuss with patient about stroke prevention guidelines. Medication compliance, hypertension/diabetes control, lifestyle changes including no smoking, drinking in moderation, losing weight, exercising, eating healthier 7. Neurology will continue to follow 8. Patient needs to follow up with neurologist as outpatient with her 1-2 weeks of discharge Past Medical History Past Medical History: Fibromyalgia, Hypertension, Osteoarthritis (OA) Additional Past Medical History / Comment(s): kidney disease stage 4, morbid obesity History of Any Multi-Drug Resistant Organisms: None Reported Past Surgical History: Cholecystectomy, Orthopedic Surgery Additional Past Surgical History / Comment(s): d & c, retracted rotator cuff (not able to repair) Smoking Status: Former smoker - Past Family History Mother Family Medical History: CVA/TIA Father Family Medical History: Myocardial Infarction ([place]) Medications and Allergies Home Medications Medication Instructions Recorded Confirmed Type Simvastatin [Zocor] 40 mg PO DAILY 02/17/15 01/20/19 History Acetaminophen with Codeine 1 tab PO QID PRN 01/20/19 01/20/19 History [Tylenol with Codeine #4 Tablet] Albuterol Sulfate [Ventolin HFA] 2 puff INHALATION RT-Q4H PRN 01/20/19 01/20/19 History Alendronate Sodium [Fosamax] 70 mg PO SA 01/20/19 01/20/19 History Carvedilol [Coreg] 6.25 mg PO AC-BID 01/20/19 01/20/19 History Cholecalciferol (Vitamin D3) 2,000 unit PO DAILY 01/20/19 01/20/19 History [Vitamin D3] FLUoxetine HCL [PROzac] 40 mg PO DAILY 01/20/19 01/20/19 History Famotidine 40 mg PO DAILY 01/20/19 01/20/19 History Levothyroxine Sodium [Synthroid] 150 mcg PO DAILY 01/20/19 01/20/19 History Lisinopril 40 mg PO DAILY 01/20/19 01/20/19 History Tiotropium [place] [Spiriva 2 puff INHALATION RT-DAILY 01/20/19 01/20/19 History Respimat] busPIRone HCl [Buspar] 10 mg PO DAILY 01/20/19 01/20/19 History hydrALAZINE HCL 10 mg PO TID 01/20/19 01/20/19 History Allergies Allergy/AdvReac Type Severity Reaction Status Date / Time Penicillins Allergy Anaphylaxis Verified 01/20/19 15:50 Sulfa (Sulfonamide Allergy Rash/Hives Verified 01/20/19 15:50 Antibiotics) Physical Examination - Vital Signs Vital Signs: Vital Signs Temp Pulse Pulse Pulse Pulse Pulse Resp 01/21/19 04:19 96.4 F L 58 L 16 01/20/19 21:51 97.9 F 66 69 69 16 01/20/19 18:19 98.4 F 71 16 01/20/19 17:00 75 66 69 18 01/20/19 14:07 98.2 F 67 18 BP BP BP BP Pulse Ox 01/21/19 04:19 137/63 96 01/20/19 21:51 161/71 145/81 150/74 98 01/20/19 18:19 150/78 98 01/20/19 17:00 157/83 166/89 152/72 01/20/19 14:07 159/79 100 Intake and Output 01/20/19 01/21/19 01/21/19 22:59 06:59 14:59 Intake Total 300 53.463 Balance 300 53.463 Intake: Intake, IV Titration 300 53.463 Amount Heparin Sod,Pork in 0.45% 53.463 NaCl 25,000 unit In 0.45 % NaCl 1 250ml.bag @ 7.73 UNITS/KG/HR 9.993 mls/hr IV .Q24H BRENNEN Rx#: [id number] Sodium Chloride 0.9% 1, 300 000 ml @ 130 mls/hr IV . [id number] STA Rx#:[id number] Other: Voiding Method Toilet # Voids 1 Results - Laboratory Findings CBC and BMP: 01/21/19 02:44 01/21/19 02:44 Abnormal Lab Findings: Abnormal Labs 01/20/19 01/20/19 01/20/19 14:33 14:33 14:33 WBC 17.8 H RBC Hgb Neutrophils # 12.8 H Monocytes # 1.6 H Basophils # APTT 21.8 L D-Dimer Chloride BUN 48 H Creatinine 1.52 H Calcium Troponin I HDL Cholesterol 01/20/19 01/20/19 01/20/19 14:33 20:07 21:28 WBC 12.3 H RBC 3.67 L Hgb 10.9 L Neutrophils # Monocytes # 1.1 H Basophils # APTT D-Dimer 4.49 H Chloride BUN Creatinine Calcium Troponin I 0.232 H* HDL Cholesterol 01/21/19 01/21/19 01/21/19 02:44 02:44 02:44 WBC RBC Hgb Neutrophils # Monocytes # Basophils # APTT 65.4 H D-Dimer Chloride BUN Creatinine Calcium Troponin I 2.450 H* HDL Cholesterol 36 L 01/21/19 01/21/19 02:44 02:44 WBC RBC 3.61 L Hgb 11.0 L Neutrophils # Monocytes # Basophils # 0.3 H APTT D-Dimer Chloride 111 H BUN 47 H Creatinine 1.53 H Calcium 8.3 L Troponin I HDL Cholesterol
[2019-01-21 18:17] LABS: T4, Free (Free Thyroxine) 2.68 ng/dL (0.78-2.19)
[2019-01-21 19:49] VITALS: RESP 18
[2019-01-22] MEDS: LEVOTHYROXINE 75 MCG TAB PO SCH (06:27)
[2019-01-22] MEDS: CARVEDILOL 6.25 MG TAB PO SCH (06:28)
[2019-01-22 07:35] LABS: Calcium 8.3 mg/dL (8.4-10.2); Potassium 4.3 mmol/L (3.5-5.1)
[2019-01-22] MEDS: ASPIRIN 81 MG PO SCH (08:22)
[2019-01-22] MEDS: hydrALAZINE HCL 10 MG TAB PO SCH (08:22)
[2019-01-22] MEDS: FLUoxetine HCL 20 MG CAP PO SCH (08:22)
[2019-01-22] MEDS: busPIRone HCl 10 MG TAB PO SCH (08:23)
[2019-01-22] MEDS ORDERED: PANTOPRAZOLE 40 MG TABLET PO SCH (09:00)
[2019-01-22] MEDS ORDERED: ATORVASTATIN 80 MG TAB PO SCH (09:00)
--- NOTE | 2019-01-22 10:59 | MR ---
EXAMINATION TYPE: MR brain wo con DATE OF EXAM: 01/22/2019 10:51 AM COMPARISON: NONE HISTORY: Dizziness, confusion FINDINGS: The ventricles, basal cisterns and sulci overlying the cerebral convexities are mildly enlarged. There is evidence of mild periventricular white matter ischemic demyelination. Remote deep white matter insults are also noted. There are small foci of increased signal on diffusion weighted data set involving the bilateral occip ital lobes right greater than left as well as adjacent to the splenium of the corpus callosum. Correl ate for possible embolic process. There is no evidence for midline shift or mass effect. Acute intracranial hemorrhage or extra-axial collection is not evident. The paranasal sinuses and mastoid air cells are well-aerated. IMPRESSION: There are small foci of increased signal on diffusion weighted data set involving the bilateral occip ital lobes right greater than left as well as adjacent to the splenium of the corpus callosum. Correl ate for possible embolic process.
--- NOTE | 2019-01-22 11:39 | P.DS ---
Providers Date of admission: 01/20/19 16:36 Expected date of discharge: 01/22/19 Attending physician: Jesse Lai MD Consults: 01/20/19 18:17 Consult Physician Stat Consulting Provider: Elsi Riojas Consult Reason/Comments: Dizziness, possible CVA Do you want consulting provider notified?: Yes 01/20/19 21:12 Consult Physician Urgent Consulting Provider: Beni Hickman Consult Reason/Comments: Tropoin elevated Do you want consulting provider notified?: Yes Primary care physician: Radha Hurtado MD Hospital Course: 68-year-old female with PMH of asthma, fibromyalgia, anxiety and depression, thyroid nodule status post thyroidectomy, hypertension, chronic kidney disease presents the ED for dizziness. Patient states that she was in the car driving for 1-1/2 hours prior to presentation. She stepped out of her car and started walking into the house when she started feeling lightheaded. She was able to ambulate 3 stairs when she started experiencing blackout vision. She denies any prodrome of sweating, nausea or palpitations. Her son was able to attend to her and bring her to the ED. She denies any shaking of her extremities, tongue biting or bladder or bowel incontinence. She denies any postictal confusion. Patient complains of black spots in her left vision currently along with left temporal headache. She denies any slurred speech or difficulty swallowing. She denies any numbness, weakness/tingling of the extremities. Of note, patient reports seeing her PCP recently for sinusitis where she received some prednisone along with a Z-David. She denies any smoking, alcohol or illicit drug use. She denies any history of CVA or [place]. In the ED, her vital signs were stable. CBC showed leukocytosis of 17.8. Coagulation panel was negative. CMP showed BUN 48, creatinine 1.52. Troponin was negative. Urinalysis was negative. Chest x-ray was negative. CT brain showed white matter demyelination, concerns for chronic ischemic vessel disease. Patient is admitted for presyncope, rule out CVA, neurology on consult. Her orthostatic vitals were negative. Troponin was initially less than 0.012 but trended up to 0.232 and 2.45 with EKG showing normal sinus rhythm and sinus arrhythmia with T-wave inversions. She was started on a heparin drip. D-dimer was obtained and was elevated. Patient underwent VQ scan which was negative for PE. She was started on aspirin and Lipitor. Cardiology was consulted and recommended cardiac catheterization. Cardiac catheterization showed mild disease which did not explain her troponin elevation, heparin drip was discontinued. Due to her dizziness, there are some concerns for CVA. CT of the brain showed nonspecific white matter demyelination may be related to chronic small vessel ischemic changes. Neurology was consulted and recommended stroke workup. Carotid duplex was negative. Hemoglobin A1c was negative. Lipid panel was done which showed low HDL of 36. Patient was seen and examined. No acute events overnight. MRI brain is currently pending. Yesterday, patient with complete resolution of symptoms. General: [non toxic], [obese], [appears at stated age] Derm: [warm], [dry] Head: [atraumatic], [normocephalic], [symmetric] Eyes: [EOMI], [no lid lag], [anicteric sclera] Mouth: [no lip lesion], [mucus membranes moist] Cardiovascular: [S1S2 reg], [irregular with systolic murmur], [positive DP pulse bilateral], Lungs: [CTA bilateral], [no rhonchi, no rales] , [no accessory muscle use] Abdominal: [soft], [ nontender to palpation], [no guarding], [no appreciable organomegaly] Ext: [no gross muscle atrophy], [no edema], [no contractures] Neuro: [ CN II-XI grossly intact], [no focal neuro deficits] Psych: [Alert], [oriented], [appropriate affect] Elevated troponins Dizziness with visual changes, concerns for CVA Hyperthyroidism with history of thyroid nodule status post thyroidectomy Elevated d-dimer rule out PE Acute kidney injury on chronic kidney disease Chronic conditions: Asthma not in acute exacerbation Fibromyalgia Depression and anxiety Hypertension Troponin less than 0.012, 0.232, 2.45 with EKG showing normal sinus rhythm with sinus arrhythmia, T-wave inversions. Cardiac catheterization shows mild coronary disease. Echocardiogram shows EF 55-60% with mild concentric LVH. Plans: Heparin drip discontinued. Start aspirin 81 mg by mouth daily, Lipitor 80 mg by mouth daily. Continue beta joanna. Telemetry monitoring. Follow cardiology recommendations. Her orthostats are negative. Non-ST elevation [place] ruled out. Brain CT shows nonspecific white matter demyelination may be related to chronic small vessel ischemic changes, concerns for CVA given her visual changes. Elevated d-dimer, VQ scan excluded PE. Carotid duplex within normal limits. Plans: Follow stroke workup, including MRI brain, neurology consulted along with PT/OT/ST. TSH less than 0.015 with free T4 2 0.68. Plans: States that her Synthroid dose was recently decreased from 175-150. Follow-up PCP. D-dimer elevated at 4.49. Plans: Low probability for PE shown on VQ scan. Creatinine 1.31. Unknown baseline. Patient known CKD. Plans: Hydration as above. Repeat BMP tomorrow morning. We will restart home medications for her depression and anxiety. Resume Coreg, hydralazine for hypertension while holding lisinopril due to CHARO. Restart Synthroid for hypothyroidism. DuoNeb as needed for shortness of breath and wheezing for asthma. [Patient admitted for presyncopal symptoms, symptoms resolved. Found to have elevated troponins, cardiac cath performed, [place] ruled out. VQ scan shows low probability for PE. She is pending MRI brain and EEG to complete stroke workup . She is pending clinical improvement. Likely DC today or tomorrow with neurology clearance.] Pertinent Studies: Chest x-ray, brain CT, echocardiogram, VQ scan, carotid duplex, MRI, EEG Procedures: Cardiac catheterization Patient Condition at Discharge: Stable Plan - Discharge Summary Discharge Rx Participant: No New Discharge Prescriptions: No Action Simvastatin [Zocor] 40 mg PO DAILY Tiotropium [place] [Spiriva Respimat] 2 puff INHALATION RT-DAILY Famotidine 40 mg PO DAILY Albuterol Sulfate [Ventolin HFA] 2 puff INHALATION RT-Q4H PRN PRN Reason: Shortness Of Breath Alendronate Sodium [Fosamax] 70 mg PO SA Acetaminophen with Codeine [Tylenol with Codeine #4 Tablet] 1 tab PO QID PRN PRN Reason: Pain busPIRone HCl [Buspar] 10 mg PO DAILY Lisinopril 40 mg PO DAILY Levothyroxine Sodium [Synthroid] 150 mcg PO DAILY Carvedilol [Coreg] 6.25 mg PO AC-BID Cholecalciferol (Vitamin D3) [Vitamin D3] 2,000 unit PO DAILY hydrALAZINE HCL 10 mg PO TID FLUoxetine HCL [PROzac] 40 mg PO DAILY Discharge Medication List Simvastatin [Zocor] 40 mg PO DAILY 02/17/15 [History] Acetaminophen with Codeine [Tylenol with Codeine #4 Tablet] 1 tab PO QID PRN 01/20/19 [History] Albuterol Sulfate [Ventolin HFA] 2 puff INHALATION RT-Q4H PRN 01/20/19 [History] Alendronate Sodium [Fosamax] 70 mg PO SA 01/20/19 [History] Carvedilol [Coreg] 6.25 mg PO AC-BID 01/20/19 [History] Cholecalciferol (Vitamin D3) [Vitamin D3] 2,000 unit PO DAILY 01/20/19 [History] FLUoxetine HCL [PROzac] 40 mg PO DAILY 01/20/19 [History] Famotidine 40 mg PO DAILY 01/20/19 [History] Levothyroxine Sodium [Synthroid] 150 mcg PO DAILY 01/20/19 [History] Lisinopril 40 mg PO DAILY 01/20/19 [History] Tiotropium [place] [Spiriva Respimat] 2 puff INHALATION RT-DAILY 01/20/19 [History] busPIRone HCl [Buspar] 10 mg PO DAILY 01/20/19 [History] hydrALAZINE HCL 10 mg PO TID 01/20/19 [History] Follow up Appointment(s)/Referral(s): Radha Hurtado MD [Primary Care Provider] - 1-2 days
[2019-01-22 11:49] VITALS: BP 165/82; PULSE 62; TEMP 96.3
--- NOTE | 2019-01-22 12:22 | P.PN ---
Progress Note - Text Progress Note Date: 01/22/19 SUBJECTIVE/INTERVAL EVENTS: No acute overnight events. Patient has not had additional episodes of confusion/change in mental status. Pt with no complaints. Denies headache, nausea, vomiting, dizziness. PHYSICAL EXAMINATION: VITAL SIGNS: T 98.0 HR 81 RR 18 BP 130/69 O2 sat 98% on RA GEN.: morbidly obese, NAD, pleasant and cooperative HEENT: NCAT, sclera without icterus NECK: Supple, no carotid bruit SKIN AND EXTREMITIES: Warm to touch, no edema NEURO: MENTAL STATUS: Patient alert and oriented to self, place, time. Able to name the current president. Speech fluent, able to name and repeat, following all commands readily. No right and left disorientation, neglect. CRANIAL NERVES II THROUGH XII: II: Pupils are equal and reactive to light symmetrically. No afferent pupillary defect. Visual cain are intact. III, IV, : No ptosis. Extraocular movements full. No nystagmus. V: Facial sensation intact from V1-3. VII. No clear facial asymmetry. VIII: Hearing intact to finger rub bilaterally. IX, X: Symmetric palate elevation. XI: Shoulder shrug intact. XII: Tongue midline without fasciculation or atrophy. MOTOR: Normal bulk/tone. No pronator drift or tremor. Strength is 5/5 throughout all 4 extremities. SENSORY: Intact to light touch in all 4 extremities. Romberg is negative. REFLEXES: 2+ throughout. Toes are downgoing. COORDINATION: Finger to nose intact. No dysmetria. GAIT: Narrow-based and stable. He also is DIAGNOSTIC TESTING: LABORATORY: WBC 10.5 hemoglobin 11.0 platelet 218 d-dimer 65.4 sodium 140 potassium 4.5 chloride 111 bicarb 25 BUN 47 creatinine 1.53 AST 23 ALT 17 alk phos 66 troponin <0.012-> 0.232-> 2.450 urinalysis negative Total cholesterol 133 LDL 82 HDL 36 triglycerides 73 TSH <0.015 fT4 2.68 IMAGING: CT head without contrast 01/20/2019: Nonspecific white matter demyelination may be related to chronic small vessel ischemic change. Carotid Doppler 01/21/19: No suspicious stenosis based on US Doppler sonography velocities. TTE 01/21/19: SR. LV, RA, RV sizes are normal. LA midly dilated. EF 55-60%. EEG 01/22/19: MRI brain w/o contrast 01/22/19: There are small foci of increased signal on diffusion weighted data set involving the bilateral occipital lobes and right greater than left as well as adjacent to the splenium of the corpus callosum. Correlate for possible embolic process. ASSESSMENT: 68 year-old woman with PMhx of fibromyalgia, HTN, osteoarthritis, CKD Stage 4, hypothyroidism, Morbid obesity, anxiety, depression, who presented to [facility] for a near syncopal episode, consulting Neurology for concerns of stroke. The episode involved L arm pain/numbness (which also involved chest pain), and visual deficits, which could be due to seizure or stroke. Patient with risk factors for stroke including smoking hx, HTN and morbid obesity. MRI brain w/o contrast showing small infarcts in b/l occipital lobe as well as splenium of the corpus callosum. RECOMMENDATIONS: 1. Cardiac monitoring: so far, no obvious atrial arrhythmia but TTE showing mildly dilated left atrium. Patient will need long-term monitoring. Cardiology following, does not see a.fib but recommends long-term event monitoring. 2. ASA 81mg qday and Plavix 75mg qday for 3 weeks, then ASA 81mg qday only; c/w atorvastatin 80mg qhs 3. Labs: A1C 4. Routine EEG today 5. Discussed with patient about stroke prevention guidelines. Medication compliance, hypertension/diabetes control, lifestyle changes including no smoking, drinking in moderation, losing weight, exercising, eating healthier 6. Patient needs to follow up with neurologist as outpatient with her 1-2 weeks of discharge. 7. Patient also needs follow up with cardiology. 8. Neurology will sign off at this time. Please feel free to contact Neurology again if with additional questions or concerns.
[2019-01-22] MEDS ORDERED: CLOPIDOGREL 75 MG TAB PO SCH (12:30)
--- NOTE | 2019-01-22 14:31 | P.PN ---
Subjective Progress Note Date: 01/22/19 This is a pleasant 68-year-old female with history of hypertension, hyperlipidemia, hypothyroidism, her father had a myocardial infarction at the age of 65 and underwent coronary bypass grafting surgery, she is nondiabetic, nonsmoker and rarely drinks alcohol. She presented to the hospital following a near syncopal episode. According to the patient, she was walking into her son's house, noticed several black spots, she weaned herself over against the arm of the chair, she states that she did not pass out but felt as though she may. She was assisted out to the ambulance when it was called, she does not recall any of this other than the fact that she was having IV started in the EMS. Prior to that she has no recollection of what happened. She denies any palpitations, no chest discomfort, no shortness of breath. 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 Her chest x-ray on presentation here did not reveal any acute cardiopulmonary process. CAT scan of the brain was performed which showed nonspecific white matter demyelination which may be related to chronic small vessel ischemia. Her EKG on presentation here showed a normal sinus rhythm with no acute changes noted. Blood pressure 136/60 with a heart rate in the 50s, temperature 96.4, 137/60 blood pressure. Orthostatics were obtained which came back to be negative. Her white blood cell count on presentation here was 17.8, it is 10.5 this morning. Hemoglobin on admission 13.5, 11 this morning. Sodium 140, potassium 4.5, BUN 47, creatinine 1.5. Initial troponin 0.012, subsequent troponin 0.23, 2.4. Cholesterol 133, LDL 82, HDL 36, triglycerides 73. At the time of my examination this morning, patient feels well, no complaints. 01/22/2019 Patient was seen and examined this morning, states that she didn't sleep well through the night last night but overall feels well today. She did undergo cardiac catheterization yesterday which revealed mild intimal disease involving the LAD and right coronary artery. Medical therapy advised. Very likely that the patient's abnormality in troponin could be secondary to acute CVA. MRI of the brain showed small foci of increased signal on diffusion weighted data in the bilateral occipital lobes right greater than left, possible embolic process. All of the patient's rhythm strips have been reviewed and there is no evidence of any atrial fibrillation. Blood pressure 130/68 with a heart rate in the 80s, 98% on room air. Sodium 140, potassium 4.3, BUN 32 and creatinine 1.3. Objective - Vital Signs Vital signs: Vital Signs Temp 96.3 F L 01/22/19 11:46 Pulse 62 01/22/19 11:46 Resp 18 01/22/19 11:46 BP 165/82 01/22/19 11:46 Pulse Ox 98 01/22/19 11:46 Intake & Output 01/21/19 01/22/19 01/22/19 18:59 06:59 18:59 Intake Total 330 480 Balance 330 480 Weight 127.8 kg Intake: IV 100 Oral 230 480 Other: Voiding Method Toilet Toilet Toilet # Voids 3 1 - Exam PHYSICAL EXAMINATION: GENERAL: 68-year-old female in no acute distress at the time of my examination HEENT: Head is atraumatic, normocephalic. Pupils equal, round. Sclera anicteric. Conjunctiva are clear. Mucous membranes of the mouth are moist. Neck is supple. There is no elevated jugular venous pressure. No carotid bruit is heard. HEART EXAMINATION: Heart S1 and S2 with systolic murmur is heard CHEST EXAMINATION: Lungs are clear to auscultation and precussion. No chest wall tenderness is noted on palpation or with deep breathing. ABDOMEN: Soft, obese, nontender. Bowel sounds are heard. No organomegaly noted. EXTREMITIES: 2+ peripheral pulses with trace evidence of peripheral edema and no calf tenderness noted. Right radial site clean and dry, good distal pulse. NEUROLOGIC patient is awake, alert and oriented 3 . - Labs CBC & Chem 7: 01/21/19 02:44 01/22/19 06:20 Labs: Abnormal Lab Results - Last 24 Hours (Table) 01/21/19 01/22/19 Range/Units 02:44 06:20 Chloride 111 H (98-107) mmol/L BUN 32 H (7-17) mg/dL Creatinine 1.31 H (0.52-1.04) mg/dL Calcium 8.3 L (8.4-10.2) mg/dL TSH <0.015 L (0.465-4.680) mIU/L Free T4 2.68 H (0.78-2.19) ng/dL Assessment and Plan Plan: Assessment and plan #1 symptoms of visual disturbance with near-syncope, brief unresponsive episode. Rule out cardiac causes. Orthostatics were obtained which came back to be negative. No arrhythmias so far have been noted on the monitor. #2 hypertension #3 hyperlipidemia #4 obesity #5 hypothyroidism, thyroidectomy one year ago #6 family history of premature coronary artery disease #7 renal insufficiency, patient states she has chronic renal insufficiency from use of Flexeril in the past, she has seen a [employer] team leader multiple years ago. #8 elevated white blood cell count on admission, normal this morning #9 abnormal troponins, cardiac catheterization did not reveal any significant obstructive coronary artery disease. Abnormality in troponin could be secondary to acute CVA. Plan Echocardiogram with Doppler study revealed an ejection fraction of 55-60%, mild to moderate MR. MRI showed abnormality in the septal region suggestive of possible embolic event. From cardiology's perspective, patient may be able to be discharged home once cleared by neuro and primary, we'll recommend that the patient had an event monitor on discharge. Follow-up with Dr. Hickman in the office. DNP note has been reviewed, I agree with a documented findings and plan of care. Patient was seen and examined.
[2019-01-23] MEDS ORDERED: LEVOTHYROXINE 100 MCG TAB PO SCH (06:30)
--- NOTE | 2019-01-23 23:35 | EEG ---
ELECTROENCEPHALOGRAM REPORT DATE OF PROCEDURE: 01/22/2019 ELECTROENCEPHALOGRAM (EEG) REPORT: TECHNIQUE: A routine 18-channel EEG was performed without video using the 10/20 international electrode placement system. HISTORY: Near-syncope. CURRENT MEDICATIONS: Protonix, Synthroid, Prozac, Coreg, BuSpar. STUDY DURATION: 26 minutes. FINDINGS: BACKGROUND: The background activity consisted of 8 to 9 Hz hertz rhythmic waveforms symmetrically distributed over both posterior quadrants. ACTIVATION: Hyperventilation: Not performed. Photic stimulation: Symmetric driving seen. Sleep: None. ABNORMALITIES: None. Please note that one channel of this EEG was dedicated to EKG, it demonstrated a sinus rhythm. IMPRESSION: Normal EEG. No epileptiform activity was present. No seizures were recorded. MMODL / IJN: [id number] / [facility] CENTERLeticia
== END 2019-01-22 15:48 | disposition home or self-care (01) ==
LOC: EC 14:00 → 3NMEDONC 16:36 → 3SCARD 01-21 05:15
PROVIDERS: ADMIT Family Medicine; ATTEND Family Medicine
DX: R55 Syncope and collapse (principal); H53.9 Unspecified visual disturbance; R51 Headache; M79.602 Pain in left arm; R20.0 Anesthesia of skin; R07.9 Chest pain, unspecified; R79.89 Other specified abnormal findings of blood chemistry; E05.90 Thyrotoxicosis, unspecified without thyrotoxic crisis or storm; E89.0 Postprocedural hypothyroidism; I12.9 Hypertensive chronic kidney disease with stage 1 through stage 4 chronic kidney disease, or unspecified chronic kidney disease; N18.4 Chronic kidney disease, stage 4 (severe); N17.9 Acute kidney failure, unspecified; J45.909 Unspecified asthma, uncomplicated; M79.7 Fibromyalgia; F32.9 Major depressive disorder, single episode, unspecified; F41.9 Anxiety disorder, unspecified; E66.01 Morbid (severe) obesity due to excess calories; Z68.43 Body mass index [BMI] 50.0-59.9, adult; D72.829 Elevated white blood cell count, unspecified; R01.1 Cardiac murmur, unspecified; M19.90 Unspecified osteoarthritis, unspecified site; E78.5 Hyperlipidemia, unspecified; N28.9 Disorder of kidney and ureter, unspecified; Z90.49 Acquired absence of other specified parts of digestive tract; Z87.891 Personal history of nicotine dependence; Z79.899 Other long term (current) drug therapy; Z79.83 Long term (current) use of bisphosphonates; Z79.891 Long term (current) use of opiate analgesic; Z79.890 Hormone replacement therapy; Z88.2 Allergy status to sulfonamides; Z88.0 Allergy status to penicillin; Z87.01 Personal history of pneumonia (recurrent); Z82.49 Family history of ischemic heart disease and other diseases of the circulatory system; Z82.3 Family history of stroke
CPT/HCPCS: 96376 ×2; 96361 ×2; 96365; 96366 ×2; 96375; 99285; 36415; 95816; 93005 ×3; 93306; 97166; 92610; 93458; 85379; 84439; 80061; 80053; 80048 ×2; 84443; 82550; 82553; 84484 ×2; 85025 ×2; 85610; 85730 ×2; 81003; 83036; 71046; 93880; 70450; 70551; 78582; G0378 ×4; A9540; A9567; J1644 ×3; J2001; J3010; C9113 ×2; Q9967